=== PATIENT | male | born 1965 | race Two or more races ===

== ENCOUNTER 2024-05-07 17:40 | Emergency (ER) | payer MEDICAID ==
[~2024-05-07] VITALS: Ht 165.1 cm; Wt 90.7 kg
[~2024-05-07 17:40] MED LIST: NO REPORTABLE MEDS
[2024-05-07] MEDS ORDERED: IBUPROFEN 600 MG TABLET ONE (18:07)
[2024-05-07] MEDS: IBUPROFEN 600 MG TABLET PO ONE (18:10)
[2024-05-07] MEDS: IV NS 0.9% 500 ML BAG IV ONE (18:10)
[2024-05-07 18:24] LABS: BASOPHILS # (AUTO) 0.1 K/uL (0.0-0.2); BASOPHILS % (AUTO) 1.5 % (0.0-2.0); EOSINOPHILS # (AUTO) 0.3 K/uL (0.0-0.7); EOSINOPHILS % (AUTO) 3.1 % (0.0-6.0); HEMATOCRIT 40 % (39-51); HEMOGLOBIN 14.1 g/dL (13.5-17.5); LYMPHOCYTES # (AUTO) 1.3 K/uL (0.8-4.8); LYMPHOCYTES % (AUTO) 15.7 % (20.0-44.0); MEAN CORPUSCULAR HEMOGLOBIN 32 PG (26.0-33.0); MEAN CORPUSCULAR HGB CONC 35 g/dl (31.0-36.0); MEAN CORPUSCULAR VOLUME 91 fL (80-96); MONOCYTES # (AUTO) 0.5 K/uL (0.1-1.30); MONOCYTES % (AUTO) 6.1 % (2.0-12.0); NEUTROPHILS # (AUTO) 6.1 K/uL (1.8-8.9); NEUTROPHILS % (AUTO) 73.6 % (43.0-81.0); PLATELET COUNT (AUTO) 318 K/uL (150-450); RED BLOOD CELL COUNT(AUTO) 4.45 MIL/uL (4.5-6.0); RED CELL DISTRIBUTION WIDTH 12.3 % (11.5-15.0); WHITE BLOOD COUNT (AUTO) 8.3 K/uL (4.3-11.0)
[2024-05-07 18:30] LABS: CALCIUM, SERUM 8.7 mg/dL (8.5-10.1); CREATININE 0.9 mg/dL (0.6-1.3); POTASSIUM 3.7 mmol/L (3.5-5.1)
[2024-05-07] MEDS ORDERED: NAPR-1164 PO (19:20)
[2024-05-07 23:05] VITALS: BP 149/99; TEMP 98.1; O2SAT 98
== END 2024-05-07 19:30 | disposition home or self-care (01) ==
LOC: ER 17:50
DX: S50.12XA Contusion of left forearm, initial encounter (principal); R55 Syncope and collapse; R53.1 Weakness; I10 Essential (primary) hypertension; W18.39XA Other fall on same level, initial encounter; Y93.89 Activity, other specified; Y92.89 Other specified places as the place of occurrence of the external cause; Y99.8 Other external cause status
CPT/HCPCS: 99284; 93005; 73090; 73060; 85025; 80048; 36415; J7040